=== PATIENT | male | born 1990 | race Caucasian/White ===

== ENCOUNTER 2022-01-19 10:49 | Emergency (ER) | payer OTHER ==
[2022-01-19] MEDS ORDERED: KETOROLAC 30 MG/ML INJ ONE (11:03)
[2022-01-19] MEDS ORDERED: NA CHLORIDE 0.9% 1,000 ML ONE (11:04)
[2022-01-19] MEDS ORDERED: ONDANSETRON 4 MG/2 ML VIAL ONE (11:04)
[2022-01-19 11:24] LABS: Absolute Lymphocytes (CBC) 2.7 K/uL (0.7-4.9); Hematocrit 42.2 % (39.6-49.0); MCV 83.5 fL (80-100); MPV 8.1 fL (7.6-11.3); RBC Red Blood Cell Count 5.06 M/uL (4.33-5.43)
--- NOTE | 2022-01-19 11:30 | RAD REPORT ---
EXAM DESCRIPTION: CT - Stone Protocol - 01/19/2022 11:20 am CLINICAL HISTORY: left flank pain COMPARISON: No comparisons TECHNIQUE: Axial 3 mm thick images were obtained without oral or IV contrast. The [id number] span s the entirety of the system including uppermost abdomen and lung bases. All CT scans are performed using dose optimization technique as appropriate and may include automated exposure control or mA/KV adjustment according to patient size. FINDINGS: Mild left-sided hydronephrosis is present secondary to a 2 mm stone at the UVJ. Additional nonobstructing left-sided calyx calculi are present 1-4 mm in size. No right-sided hydronephrosis or right-sided calculi. No suspicious renal masses. Isodense masses and pyelonephritis are not excluded on a stone protocol CT scan. No significant adrenal finding. Urinary bladder is contracted limiting evaluation. Imaged portions of the liver, spleen and pancreas show no suspicious findings on non-contrast imaging . No gallbladder or biliary tree abnormality identified. No suspicious bowel findings. Appendix is normal. No hernia, mass or bulky lymphadenopathy noted. No free air, free fluid or inflammatory stranding. No significant bony abnormality. IMPRESSION: Mild left-sided hydronephrosis secondary to a 2 mm calcification at the left UVJ. Additional nonobstructing 1-4 mm sized calyx calculi of the left kidney. Isodense masses and pyelonephritis are not excluded on stone protocol technique.
[2022-01-19 11:45] LABS: Potassium 3.9 mmol/L (3.5-5.1)
[2022-01-19 11:46] LABS: Albumin 4.3 g/dL (3.4-5.0); Bilirubin Total 0.4 mg/dL (0.2-1.0); Protein, Total 7.7 g/dL (6.4-8.2)
[2022-01-19] MEDS ORDERED: TAMSULOSIN 0.4 MG SR CAP ONE (12:00)
[2022-01-19] MEDS ORDERED: MAGNESIUM SULFATE 1 gm IVPB 1 GM/100 ML BAG IV ONE (12:01)
[2022-01-19 12:10] LABS: Urine Blood 3+ (Negative); Urine Glucose Negative (Negative); Urine Protein Trace (Negative); Urine Specific Gravity 1.025 (1.005-1.030)
[2022-01-19 12:26] LABS: Urine Bacteria <20 /HPF (<20); Urine Mucus 3+ /HPF (None Seen); Urine RBC >50 /HPF (None Seen)
--- NOTE | 2022-01-19 13:03 | ER ---
Nurse's Notes [facility] Name: Mj May Jr Age: 31 yrs Sex: Male : 1990 Arrival Date: 01/19/2022 Time: 10:53 Bed 23 Private MD: Diagnosis: Calculus of ureter Presentation: 01/19 10:59 Chief complaint: Patient states: L flank pain for 1.5 hours. Believes its another ll1 kidney stone. Coronavirus screen: Vaccine status: Patient reports receiving the 2nd dose of the covid vaccine. Client denies travel out of the [place] in the last 14 days. At this time, the client does not indicate any symptoms associated with coronavirus-19. Ebola Screen: Patient denies travel to an Ebola-affected area in the 21 days before illness onset. Initial Sepsis Screen: Does the patient meet any 2 criteria? No. Patient's initial sepsis screen is negative. Does the patient have a suspected source of infection? Yes: Dysuria/Frequency/Urgency/UTI Acute abdominal pain. Risk Assessment: Do you want to hurt yourself or someone else? Patient reports no desire to harm self or others. Onset of symptoms was January 19, 2022. 10:59 Method Of Arrival: Ambulatory ll1 10:59 Acuity: DANA 3 ll1 Triage Assessment: 11:01 General: Appears uncomfortable, Behavior is cooperative, appropriate for age. Pain: ll1 Complains of pain in L flank Pain currently is 10 out of 10 on a pain scale. Quality of pain is described as aching, sharp. : Reports L flank pain. Historical: - Allergies: 11: No Known Allergies; ll1 - PMHx: 11:01 Kidney stone; ll1 - PSHx: 11:01 Lithotripsy; ll1 - Immunization history:: Client reports receiving the 2nd dose of the Covid vaccine. - Social history:: Smoking status: Patient denies any tobacco usage or history of. Screenin:55 Abuse screen: Denies threats or abuse. Denies injuries from another. Nutritional tp1 screening: No deficits noted. Tuberculosis screening: No symptoms or risk factors identified. Fall Risk None identified. Assessment: 10:55 General: Appears in no apparent distress. uncomfortable, Behavior is calm, cooperative. tp1 Pain: Complains of pain in left low back Pain does not radiate. Pain currently is 10 out of 10 on a pain scale. Quality of pain is described as sharp, Pain began 2 hours ago. Is continuous. Neuro: Level of Consciousness is awake, alert, obeys commands, Oriented to person, place, time, situation. Cardiovascular: Patient's skin is warm and dry. Respiratory: Airway is patent Respiratory effort is even, unlabored, Respiratory pattern is regular. GI: Abdomen is flat, non-distended, Bowel sounds present X 4 quads. Abd is soft Abdomen is tender to palpation in posterior aspect of left lateral abdomen Reports nausea. : Denies burning with urination, inability to void. EENT: No deficits noted. Derm: Skin is pink, warm \T\ dry. Musculoskeletal: Circulation, motion, and sensation intact. 11:35 Reassessment: Patient appears in no apparent distress at this time. Patient and/or tp1 family updated on plan of care and expected duration. Pain level reassessed. Patient is alert, oriented x 3, equal unlabored respirations, skin warm/dry/pink. rates pain 0/10. states medication helped, Patient denies pain at this time. 12:45 Reassessment: Patient appears in no apparent distress at this time. No changes from tp1 previously documented assessment. Patient and/or family updated on plan of care and expected duration. Pain level reassessed. Patient is alert, oriented x 3, equal unlabored respirations, skin warm/dry/pink. resting in bed playing on phone. Patient denies pain at this time. Vital Signs: 10:59 BP 115 / 96; Pulse 54; Resp 18; Temp 97.9; Pulse Ox 100% ; Weight 95.25 kg; Height 6 ll1 ft. 1 in. (185.42 cm); Pain 10/10; 11:44 BP 127 / 85; Pulse 52; Resp 16; Pulse Ox 97% on R/A; tp1 12:45 BP 116 / 70; Pulse 50; Resp 16; Pulse Ox 96% on R/A; tp1 10:59 Body Mass Index 27.71 (95.25 kg, 185.42 cm) ll1 ED Course: 10:53 Patient arrived in ED. mr 10:54 Maeve Alves FNP-C is [facility]. kb 10:54 Temo Middleton MD is Attending Physician. kb 10:55 Patient has correct armband on for positive identification. Bed in low position. Call tp1 light in reach. 11:01 Triage completed. ll1 11:01 Jenna Kimble, OLIVA is Primary Nurse. tp1 11:02 Arm band placed on Patient placed in an exam room, on a stretcher. ll1 11:12 Inserted saline lock: 20 gauge in right antecubital area, using aseptic technique. tp1 Blood collected. 11:22 CT Stone Protocol In Process Unspecified. EDMS 11:35 Client placed on continuous cardiac and pulse oximetry monitoring. NIBP monitoring tp1 applied. 13:03 Dilshad Higgins MD is Referral Physician. kb 13:17 No provider procedures requiring assistance completed. IV discontinued, intact, tp1 bleeding controlled, No redness/swelling at site. Pressure dressing applied. Administered Medications: 11:09 Drug: Zofran (Ondansetron) 4 mg Route: IVP; Site: right antecubital; tp1 11:44 Follow up: Response: Nausea is decreased tp1 11:11 Drug: Ketorolac 15 mg Route: IVP; Site: right antecubital; tp1 11:44 Follow up: Response: Pain is decreased tp1 11:35 Drug: NS 0.9% 1000 ml Route: IV; Rate: 1000 ml; Site: right antecubital; tp1 13:07 Follow up: Response: No adverse reaction; IV Status: Completed infusion; IV Intake: tp1 1000ml 12:03 Drug: Flomax (tamsulosin) 0.4 mg Route: PO; tp1 13:07 Follow up: Response: No adverse reaction tp1 12:06 Drug: Magnesium Sulfate 1 grams Route: IVPB; Infused Over: 1 hrs; Site: right tp1 antecubital; 13:06 Follow up: Response: No adverse reaction; IV Status: Completed infusion; IV Intake: tp1 100ml Medication: 10:55 VIS not applicable for this client. tp1 Intake: 13:06 IV: 100ml; Total: 100ml. tp1 13:07 IV: 1000ml; Total: 1100ml. tp1 Outcome: 13:03 Discharge ordered by . kb 13:17 Discharged to home ambulatory. tp1 13:17 Condition: good 13:17 Discharge instructions given to patient, Instructed on discharge instructions, follow up and referral plans. medication usage, Demonstrated understanding of instructions, follow-up care, medications, Prescriptions given X 4. 13:17 Patient left the ED. tp1 Signatures: Dispatcher [employer] EDMS Maeve Alves, KAL MURRAY-Wilder Donita Mann Rajeev Licea, RN RN ll1 Jenna Kimble RN RN tp1 Corrections: (The following items were deleted from the chart) 11:44 10:55 GI: Abdomen is flat, non-distended, Bowel sounds present X 4 quads. Abd is soft tp1 Abdomen is tender to palpation in posterior aspect of left lateral abdomen tp1
--- NOTE | 2022-01-19 13:03 | EDPHYS ---
Physician Documentation [facility] Name: Mj May Jr Age: 31 yrs Sex: Male : 1990 Arrival Date: 01/19/2022 Time: 10:53 Bed 23 Private MD: ED Physician Temo Middleton HPI: 01/19 13:12 This 31 yrs old Male presents to ER via Ambulatory with complaints of Possible Kidney kb Stone. 13:12 The patient complains of pain in the left flank. The pain does not radiate. Onset: The kb symptoms/episode began/occurred 1.5 hour(s) ago. Modifying factors: The symptoms are alleviated by nothing. the symptoms are aggravated by nothing. Associated signs and symptoms: The patient has no apparent associated signs or symptoms. Severity of pain: At its worst the pain was moderate in the emergency department the pain is unchanged. The patient has not experienced similar symptoms in the past. The patient has not recently seen a physician. Pt reports left flank pain for 1.5 hours. States he has had several kidney stones in the past and this feels the same. Historical: - Allergies: 11:01 No Known Allergies; ll1 - PMHx: 11:01 Kidney stone; ll1 - PSHx: 11:01 Lithotripsy; ll1 - Immunization history:: Client reports receiving the 2nd dose of the Covid vaccine. - Social history:: Smoking status: Patient denies any tobacco usage or history of. ROS: 13:11 Constitutional: Negative for fever, chills, and weight loss. kb 13:11 Back: Positive for flank pain, on the left. 13:11 All other systems are negative. Exam: 13:11 Constitutional: This is a well developed, well nourished patient who is awake, alert, kb and in no acute distress. Head/Face: Normocephalic, atraumatic. ENT: Moist Mucous membranes Cardiovascular: Regular rate and rhythm with a normal S1 and S2. No gallops, murmurs, or rubs. No pulse deficits. Respiratory: Respirations even and unlabored. No increased work of breathing. Talking in full sentences Abdomen/GI: Soft, non-tender. No distention Skin: Warm, dry with normal turgor. Normal color. MS/ Extremity: Pulses equal, no cyanosis. Neurovascular intact. Full, normal range of motion. Neuro: Awake and alert, GCS 15, oriented to person, place, time, and situation. Moves all extremities. Normal gait. Psych: Awake, alert, with orientation to person, place and time. Behavior, mood, and affect are within normal limits. 13:11 Back: CVA tenderness, that is mild, that is moderate, is noted on the left. Vital Signs: 10:59 BP 115 / 96; Pulse 54; Resp 18; Temp 97.9; Pulse Ox 100% ; Weight 95.25 kg; Height 6 ll1 ft. 1 in. (185.42 cm); Pain 10/10; 11:44 BP 127 / 85; Pulse 52; Resp 16; Pulse Ox 97% on R/A; tp1 12:45 BP 116 / 70; Pulse 50; Resp 16; Pulse Ox 96% on R/A; tp1 10:59 Body Mass Index 27.71 (95.25 kg, 185.42 cm) ll1 MDM: 10:54 Patient medically screened. kb 13:02 Data reviewed: vital signs, nurses notes. Data interpreted: Pulse oximetry: on room air kb is 96 %. Interpretation: normal. Counseling: I had a detailed discussion with the patient and/or guardian regarding: the historical points, exam findings, and any diagnostic results supporting the discharge/admit diagnosis, lab results, radiology results, the need for outpatient follow up, a urologist, to return to the emergency department if symptoms worsen or persist or if there are any questions or concerns that arise at home. 01/19 10:54 Order name: CBC with Diff; Complete Time: 11:50 kb 01/19 10:54 Order name: CMP; Complete Time: 11:50 kb 01/19 10:54 Order name: Lipase; Complete Time: 11:50 kb 01/19 10:54 Order name: Urine Microscopic Only; Complete Time: 12:27 kb 01/19 10:54 Order name: CT Stone Protocol; Complete Time: 11:50 kb 01/19 12:11 Order name: Urine Dipstick-Ancillary; Complete Time: 12:14 EDMS 01/19 10:54 Order name: IV Saline Lock; Complete Time: 11:12 kb 01/19 10:54 Order name: Labs collected and sent; Complete Time: 11:12 kb 01/19 10:54 Order name: Urine Dipstick-Ancillary (obtain specimen); Complete Time: 12:11 kb Administered Medications: 11:09 Drug: Zofran (Ondansetron) 4 mg Route: IVP; Site: right antecubital; tp1 11:44 Follow up: Response: Nausea is decreased tp1 11:11 Drug: Ketorolac 15 mg Route: IVP; Site: right antecubital; tp1 11:44 Follow up: Response: Pain is decreased tp1 11:35 Drug: NS 0.9% 1000 ml Route: IV; Rate: 1000 ml; Site: right antecubital; tp1 13:07 Follow up: Response: No adverse reaction; IV Status: Completed infusion; IV Intake: tp1 1000ml 12:03 Drug: Flomax (tamsulosin) 0.4 mg Route: PO; tp1 13:07 Follow up: Response: No adverse reaction tp1 12:06 Drug: Magnesium Sulfate 1 grams Route: IVPB; Infused Over: 1 hrs; Site: right tp1 antecubital; 13:06 Follow up: Response: No adverse reaction; IV Status: Completed infusion; IV Intake: tp1 100ml Disposition Summary: 01/19/22 13:03 Discharge Ordered Location: Home kb Condition: Stable kb Diagnosis - Calculus of ureter kb Followup: kb - With: Emergency Department - When: As needed - Reason: Worsening of condition Followup: kb - With: Private Physician - When: 2 - 3 days - Reason: Recheck today's complaints, Continuance of care, Re-evaluation by your physician Followup: kb - With: Dilshad Hgigins MD - When: 2 - 3 days - Reason: Recheck today's complaints Discharge Instructions: - Discharge Summary Sheet kb - Kidney Stones, [id number] kb - Dietary Guidelines to Help Prevent Kidney Stones kb Forms: - Medication Reconciliation Form kb - Thank You Letter kb - Antibiotic Education kb - Prescription Opioid Use kb Prescriptions: - ketorolac 10 mg Oral tablet - take 1 tablet by ORAL route every 8 hours As needed not to exceed 40 mg in kb 24hrs; 10 tablet; Refills: 0, Product Selection Permitted - Zofran 4 mg Oral Tablet - take 1 tablet by ORAL route every 6 hours As needed; 20 tablet; Refills: 0, kb Product Selection Permitted - Flomax 0.4 mg Oral capsule - take 1 capsule by ORAL route once daily 1/2 hour following the same meal each kb day; 10 capsule; Refills: 0, Product Selection Permitted - Cipro 500 mg Oral Tablet - take 1 tablet by ORAL route every 12 hours for 7 days; 14 tablet; Refills: 0, kb Product Selection Permitted Signatures: Dispatcher [employer] Maeve Sánchez FNP-C FNP-Ckb Lewis, Lynsay, RN RN ll1 Jenna Kimble RN RN tp1
[2022-01-19 13:44] VITALS: TEMP 97.9
[2022-01-19 13:47] VITALS: BP 116/70; O2SAT 96
== END 2022-01-19 13:17 | disposition home or self-care (01) ==
LOC: ER 10:49
DX: N20.1 Calculus of ureter (principal); Z87.442 Personal history of urinary calculi
CPT/HCPCS: 96365; 96361; 85025; 36415; 83690; 80053; 76377; 74176; 96375; 99284; J3475; J7030; J2405; 81003; 81015